=== PATIENT | female | born 1990 | race Caucasian/White ===

== ENCOUNTER 2018-03-06 08:43 | Emergency (ER) | payer OTHER ==
[~2018-03-06] VITALS: Ht 160 cm; Wt 95.3 kg
[~2018-03-06 08:43] MED LIST: KEFLEX500 MG PO; NOHOMEMEDICATIONS; NORCO 5-325 TA1 EACH PO; PHENERGAN 25 MG25 M1 PO; PHENERGAN50 MG RC; PRENATAL TABLE1 EAC3 PO; ZANTAC 150MG T150 M1 PO; ZOFRAN ODT4 MG PO
[2018-03-06 09:05] LABS: URINE BLOOD NEGATIVE (Negative); URINE CLARITY SL CLOUDY; URINE COLOR YELLOW; URINE GLUCOSE-RANDOM* NEGATIVE (Negative); URINE KETONES TRACE (Negative); URINE LEUKOCYTES TRACE (Negative); URINE NITRITE NEGATIVE (Negative); URINE PROTEIN (DIPSTICK) TRACE (Negative); URINE SPECIFIC GRAVITY 1.025 (1.005-1.035); URINE UROBILINOGEN 0.2 E.U./dl (0.2-1.0)
[2018-03-06 09:07] LABS: ICTOTEST (BILI CONFIRMATORY) Negative (Negative); URINE BILIRUBIN NEGATIVE (Negative)
[2018-03-06 10:24] LABS: ABSOLUTE NEUTROPHILS 9.5 thou/uL (1.4-8.2); BASOPHILS 0.6 % (0.0-2.0); EOSINOPHILS 0.3 % (0.0-3.0); HEMATOCRIT 37.7 % (37.0-47.0); HEMOGLOBIN 12.8 gm/dL (12.0-15.0); LYMPHOCYTES 15.7 % (24.0-44.0); MCH 27.9 pg (26.0-34.0); MCHC 33.8 g/dL (28.0-37.0); MCV 82.5 fL (80.0-100.0); MONOCYTES 5.5 % (1.0-8.0); PLATELET COUNT 384 thou/uL (150-400); POLYS 77.9 % (36.0-66.0); RBC 4.57 mil/uL (4.20-5.00); RDW 14.8 % (10.5-14.5); WBC 12.2 thou/uL (4.0-11.0)
[2018-03-06 10:35] LABS: ANION GAP 7 mmol/L (7-16); BUN 9 mg/dL (7-18); CALCIUM 8.9 mg/dL (8.5-10.1); CHLORIDE 103 mmol/L (98-107); CO2 26 mmol/L (21-32); CREATININE 0.7 mg/dL (0.6-1.0); GLUCOSE 87 mg/dL (74-106); POTASSIUM 4.4 mmol/L (3.5-5.1)
[2018-03-06 10:36] LABS: SODIUM 136 mmol/L (136-145)
[2018-03-06 10:41] LABS: ALBUMIN 3.6 g/dL (3.4-5.0); DIRECT BILIRUBIN < 0.1 mg/dL (<0.1-0.3); LIPASE 100 U/L (73-393); SGOT 17 U/L (15-37); SGPT 17 U/L (30-65); TOTAL BILIRUBIN 0.3 mg/dL (<0.1-1.0); TOTAL PROTEIN 7.7 g/dL (6.4-8.2)
[2018-03-06 13:32] VITALS: BP 118/57
== END 2018-03-06 13:33 | disposition home or self-care (01) ==
LOC: ER 08:43
PROVIDERS: Nurse Practitioner
DX: O26.891 Other specified pregnancy related conditions, first trimester (principal); Z3A.09 9 weeks gestation of pregnancy; R10.32 Left lower quadrant pain; R11.2 Nausea with vomiting, unspecified

== ENCOUNTER 2018-03-30 14:06 | Emergency (ER) | payer BC ==
[~2018-03-30] VITALS: Ht 160 cm; Wt 90.7 kg
[2018-03-30 15:05] LABS: URINE BILIRUBIN 2+ (Negative); URINE BLOOD NEGATIVE (Negative); URINE CLARITY CLOUDY; URINE COLOR YELLOW; URINE GLUCOSE-RANDOM* TRACE (Negative); URINE KETONES 3+ (Negative); URINE LEUKOCYTES 3+ (Negative); URINE NITRITE NEGATIVE (Negative); URINE PROTEIN (DIPSTICK) 2+ (Negative); URINE SPECIFIC GRAVITY 1.025 (1.005-1.035)
[2018-03-30 15:07] LABS: ABSOLUTE NEUTROPHILS 10.5 thou/uL (1.4-8.2); BASOPHILS 0.4 % (0.0-2.0); EOSINOPHILS 0.3 % (0.0-3.0); HEMOGLOBIN 14.3 gm/dL (12.0-15.0); MCHC 34.2 g/dL (28.0-37.0); MONOCYTES 6.6 % (1.0-8.0); PLATELET COUNT 473 thou/uL (150-400); POLYS 76.7 % (36.0-66.0); RBC 5.12 mil/uL (4.20-5.00); RDW 14.3 % (10.5-14.5); WBC 13.7 thou/uL (4.0-11.0)
[2018-03-30 15:09] LABS: ICTOTEST (BILI CONFIRMATORY) Positive (Negative)
[2018-03-30 15:20] LABS: CALCIUM 9.7 mg/dL (8.5-10.1); CREATININE 0.7 mg/dL (0.6-1.0); POTASSIUM 3.1 mmol/L (3.5-5.1)
[2018-03-30 15:25] LABS: ALBUMIN 3.9 g/dL (3.4-5.0); DIRECT BILIRUBIN 0.3 mg/dL (<0.1-0.3); TOTAL BILIRUBIN 0.7 mg/dL (<0.1-1.0); TOTAL PROTEIN 8.5 g/dL (6.4-8.2)
[2018-03-30 15:27] LABS: SQUAMOUS >10 Many /LPF (0-3)
[2018-03-30 15:28] LABS: BACTERIA >30 Many /HPF (None Seen); CASTS None Seen /LPF (None Seen)
[2018-03-30 15:29] LABS: CRYSTALS None Seen /LPF (None Seen); MUCUS >6 Heavy strn/LPF (None Seen); URINE RBC None Seen /HPF (0-2)
[2018-03-30] MEDS ORDERED: PROMS25 WY RECTAL (15:30)
[2018-03-30] MEDS ORDERED: POTASSIUM20 PO (15:30)
[2018-03-30] MEDS ORDERED: MACROBID 100 M100 M1 PO (15:30)
[2018-03-30] MEDS ORDERED: PHENERGAN 25 MG25 M1 PO (15:30)
[2018-03-30] MEDS ORDERED: UNICOMPLEX M TA1 TA1 PO (15:44)
[2018-03-30] MEDS ORDERED: VITAMIN B-6100 MG PO (15:45)
[2018-03-30 17:10] VITALS: BP 110/60
== END 2018-03-30 17:12 | disposition home or self-care (01) ==
LOC: ER 14:06
PROVIDERS: Emergency Medicine
DX: O21.9 Vomiting of pregnancy, unspecified (principal); O23.41 Unspecified infection of urinary tract in pregnancy, first trimester; E87.6 Hypokalemia; Z3A.12 12 weeks gestation of pregnancy

== ENCOUNTER 2018-04-24 09:31 | Emergency (ER) | payer BC ==
[~2018-04-24] VITALS: Ht 160 cm; Wt 90.7 kg
[~2018-04-24 09:31] MED LIST changes: +MACROBID 100 M100 M1 PO; +POTASSIUM20 PO; +PROMS25 WY RECTAL; +UNICOMPLEX M TA1 TA1 PO; +VITAMIN B-6100 MG PO
[2018-04-24 09:42] LABS: URINE BLOOD NEGATIVE (Negative); URINE GLUCOSE-RANDOM* TRACE (Negative); URINE KETONES 3+ (Negative); URINE NITRITE-REFLEX NEGATIVE (Negative); URINE PROTEIN (DIPSTICK) 2+ (Negative); URINE SPECIFIC GRAVITY >= 1.030 (1.005-1.035)
[2018-04-24 09:44] LABS: URINE COLOR ORANGE; URINE LEUKOCYTES-REFLEX 2+ (Negative)
[2018-04-24 09:45] LABS: ICTOTEST (BILI CONFIRMATORY) Negative (Negative); URINE BILIRUBIN NEGATIVE (Negative); URINE CLARITY CLOUDY
[2018-04-24 10:03] LABS: CALCIUM 9.7 mg/dL (8.5-10.1); CREATININE 0.6 mg/dL (0.6-1.0); POTASSIUM 3.1 mmol/L (3.5-5.1)
[2018-04-24 10:23] LABS: BACTERIA-REFLEX >30 Many /HPF (None Seen); SQUAMOUS >10 Many /LPF (0-3)
[2018-04-24 10:24] LABS: CASTS None Seen /LPF (None Seen); CRYSTALS None Seen /LPF (None Seen); URINE RBC 3-10 Few /HPF (0-2); URINE WBC-REFLEX 6-15 Few /HPF (0-5)
[2018-04-24 12:14] LABS: URINE BILIRUBIN 2+ (Negative); URINE BLOOD NEGATIVE (Negative); URINE CLARITY CLOUDY; URINE COLOR YELLOW; URINE GLUCOSE-RANDOM* NEGATIVE (Negative); URINE KETONES 3+ (Negative); URINE LEUKOCYTES-REFLEX NEGATIVE (Negative); URINE PROTEIN (DIPSTICK) 1+ (Negative); URINE SPECIFIC GRAVITY >= 1.030 (1.005-1.035)
[2018-04-24 12:15] LABS: URINE NITRITE-REFLEX POSITIVE (Negative)
[2018-04-24 12:26] LABS: URINE REDUCING SUBSTANCE NEGATIVE
[2018-04-24] MEDS ORDERED: REGLAN 10 MG TA10 MG PO (12:43)
[2018-04-24] MEDS ORDERED: MACROBID 100 M100 M1 PO (12:43)
[2018-04-24 12:51] LABS: SQUAMOUS 4-10 Moderate /LPF (0-3)
[2018-04-24 12:52] LABS: AMORPHOUS URATES Many /LPF (None Seen); BACTERIA-REFLEX 1-9 Few /HPF (None Seen); HYALINE CASTS 0-3 Few /LPF (None Seen); URINE RBC 0-2 Rare /HPF (0-2); URINE WBC-REFLEX None Seen /HPF (0-5)
[2018-04-24 13:58] VITALS: BP 117/80
== END 2018-04-24 13:59 | disposition home or self-care (01) ==
LOC: ER 09:31
PROVIDERS: Emergency Medicine
DX: O26.892 Other specified pregnancy related conditions, second trimester (principal); Z3A.15 15 weeks gestation of pregnancy; R82.71 Bacteriuria; R11.2 Nausea with vomiting, unspecified

== ENCOUNTER 2020-03-10 20:55 | Emergency (ER) | payer OTHER ==
[~2020-03-10] VITALS: Ht 160 cm; Wt 90.7 kg
[~2020-03-10 20:55] MED LIST changes: +REGLAN 10 MG TA10 MG PO
[2020-03-10] MEDS ORDERED: NOHOMEMEDICATIONS (21:04)
[2020-03-10 21:21] LABS: URINE BILIRUBIN 1+ (Negative); URINE BLOOD NEGATIVE (Negative); URINE CLARITY CLOUDY; URINE COLOR YELLOW; URINE GLUCOSE-RANDOM* NEGATIVE (Negative); URINE KETONES 3+ (Negative); URINE PROTEIN (DIPSTICK) 1+ (Negative); URINE SPECIFIC GRAVITY >= 1.030 (1.005-1.035); URINE UROBILINOGEN 0.2 E.U./dl (0.2-1.0)
[2020-03-10 21:24] LABS: URINE LEUKOCYTES-REFLEX 1+ (Negative); URINE NITRITE-REFLEX POSITIVE (Negative)
[2020-03-10 21:36] LABS: BACTERIA-REFLEX >30 Many /HPF (None Seen); CASTS None Seen /LPF (None Seen); MUCUS 4-6 Moderate strn/LPF (None Seen); SQUAMOUS 4-10 Moderate /LPF (0-3); URINE RBC 0-2 Rare /HPF (0-2); URINE WBC-REFLEX 6-15 Few /HPF (0-5); WBC CLUMPS Few (None Seen)
[2020-03-10 21:37] LABS: CRYSTALS None Seen /LPF (None Seen)
[2020-03-10 22:43] LABS: ABSOLUTE NEUTROPHILS 10.4 thou/uL (1.4-8.2); BASOPHILS 0.5 % (0.0-2.0); EOSINOPHILS 0.1 % (0.0-3.0); HEMATOCRIT 24.8 % (37.0-47.0); HEMOGLOBIN 13.9 gm/dL (12.0-15.0); LYMPHOCYTES 12.4 % (24.0-44.0); MCH 47.6 pg (26.0-34.0); MCHC 56.2 g/dL (28.0-37.0); MCV 84.8 fL (80.0-100.0); PLATELET COUNT 316 thou/uL (150-400); RBC 2.92 mil/uL (4.20-5.00); RDW 15.2 % (10.5-14.5); WBC 12.7 thou/uL (4.0-11.0)
[2020-03-10 23:06] LABS: CALCIUM 8.8 mg/dL (8.5-10.1); CREATININE 0.8 mg/dL (0.6-1.0); POTASSIUM 3.8 mmol/L (3.5-5.1)
[2020-03-10 23:12] LABS: ALBUMIN 4.1 g/dL (3.4-5.0); TOTAL BILIRUBIN 0.8 mg/dL (<0.1-1.0); TOTAL PROTEIN 8.3 g/dL (6.4-8.2)
[2020-03-10] MEDS ORDERED: MACROBID 100 M100 M1 PO (23:23)
[2020-03-10] MEDS ORDERED: REGLAN 10 MG TA10 MG PO (23:23)
[2020-03-10] MEDS ORDERED: PRENATAL COMPL1 EACH PO (23:23)
[2020-03-10 23:35] VITALS: BP 99/57
== END 2020-03-10 23:38 | disposition home or self-care (01) ==
LOC: ER 20:55
PROVIDERS: Emergency Medicine
DX: O23.41 Unspecified infection of urinary tract in pregnancy, first trimester (principal); O21.9 Vomiting of pregnancy, unspecified; Z3A.01 Less than 8 weeks gestation of pregnancy